=== PATIENT | female | born 1945 | race Asian ===

== ENCOUNTER 2018-05-01 05:58 | Day surgery (SDC) | payer OTHER ==
[2018-05-01] MEDS ORDERED: LIDOCAINE 4% SOLUTION 50 ML BTL (07:46)
[2018-05-01] MEDS ORDERED: FENTAnyl 50 MCG/ML VIAL (08:23)
[2018-05-01] MEDS ORDERED: MIDAZOLAM 1 MG/ML 2 ML INJ ×2 (08:23)
== END 2018-05-01 10:17 | disposition home or self-care (01) ==
LOC: GIL 05:58
DX: R19.5 Other fecal abnormalities (principal); K29.30 Chronic superficial gastritis without bleeding; K64.8 Other hemorrhoids; K64.4 Residual hemorrhoidal skin tags; K62.1 Rectal polyp; K21.0 Gastro-esophageal reflux disease with esophagitis; I10 Essential (primary) hypertension
CPT/HCPCS: 43239; 88305; 88312